=== PATIENT | male | born 1965 | race Caucasian/White ===

== ENCOUNTER 2020-05-25 14:19 | Emergency (ER) | payer OTHER, SELFPAY ==
[~2020-05-25] VITALS: Ht 170.2 cm; Wt 90.7 kg
[2020-05-25 14:45] VITALS: Ht 170.2 cm; Wt 90.7 kg
[2020-05-25 17:15] VITALS: BP 118/80
== END 2020-05-25 17:15 | disposition home or self-care (01) ==
LOC: ED 14:19
DX: U07.1 COVID-19 (principal); J12.89 Other viral pneumonia
CPT/HCPCS: J1100